=== PATIENT | male | born 1960 | race Caucasian/White ===

== ENCOUNTER 2023-01-23 17:31 | Emergency (ER) | payer MEDICAID ==
[~2023-01-23] VITALS: Ht 170.2 cm; Wt 81.8 kg
[2023-01-23] MEDS ORDERED: LIDOCAINE HCL/PF 1% 10 MG/ML 5ML VIAL INFIL ONE (20:15)
[2023-01-23] MEDS ORDERED: TETANUS, DIPHTHERIA, PERTUSSIS VAC/PF 0.5ML (>10YR OLD) IM ONE (20:15)
[2023-01-23] MEDS ORDERED: MORPHINE SULFATE 10 MG/ML CPJ IM ONE (21:00)
[2023-01-23 21:10] VITALS: BP 137/94
[2023-01-23] MEDS ORDERED: CEPH500C2 MT (21:40)
[2023-01-23] MEDS ORDERED: T3 PO (21:40)
[2023-01-23] MEDS ORDERED: CEFTRIAXONE SODIUM 1 G/VIAL IM ONE (21:45)
== END 2023-01-23 22:03 | disposition home or self-care (01) ==
LOC: ER 17:31
DX: R58 Hemorrhage, not elsewhere classified (principal)
CPT/HCPCS: 73140; 90471; 90715; 96372; 99284; J0696; J2270; J3490; Z7610